=== PATIENT | female | born 1990 | race Caucasian/White ===

== ENCOUNTER 2022-01-07 10:25 | Outpatient (CLI) | payer OTHER, SELFPAY ==
[2022-01-07 11:55] LABS: Mean Corp Hgb Conc 33.3 g/dL (32-36); Mean Corpuscular Volume 84.1 fL (81-99); Mean Platelet Vol. 9.2 fl (6.2-12.0); Platelet Count 417 K/mm3 (150-450); RBC Distribution Width CV 14.6 % (11.6-14.6); Red Blood Count 4.64 M/mm3 (4.2-5.4); White Blood Count 7.6 K/mm3 (4.4-11.0)
[2022-01-07 12:12] LABS: Estradiol 45.1 pg/mL; Follicle Stimulating Hormone 2.1 mIU/mL; Luteinizing Hormone 3.7 mIU/mL; Prolactin 6.5 ng/mL; T4 Free Direct 0.87 ng/dL (0.76-1.46); Thyroid Stim Hormone (TSH) 4.05 uIU/mL (0.358-3.74)
[2022-01-13 20:58] LABS: HPV APTIMA, High Risk Negative (Negative)
== END 2022-01-07 23:59 | disposition home or self-care (01) ==
LOC: WOBLAB 10:28
PROVIDERS: PCP Hospitalist; Visit Provider Student in an Organized Health Care Education/Training Program
DX: N93.9 Abnormal uterine and vaginal bleeding, unspecified (principal)
CPT/HCPCS: 36415; 82670; 83001; 83002; 84146; 84439; 84443; 85027; 87624; 88175; G0145

== ENCOUNTER 2022-02-20 06:05 | Day surgery (SDC) | payer OTHER, SELFPAY ==
[2022-02-16 11:30] LABS: Hematocrit 40.3 % (37-47); Hemoglobin 13.3 g/dL (12.0-15.0); Mean Corpuscular Hgb 27.8 pg (27.0-32.0); Mean Corpuscular Volume 84.3 fL (81-99); Mean Platelet Vol. 9.1 fl (6.2-12.0); Platelet Count 408 K/mm3 (150-450); RBC Distribution Width CV 14.5 % (11.6-14.6); RBC Distribution Width SD 44.3 fl (35.1-43.9); Red Blood Count 4.78 M/mm3 (4.2-5.4)
[2022-02-20] VITALS (11 sets, daily range): BP systolic 117–154; BP diastolic 70–83; PULSE 89–110; RESP 16–18; TEMP 36.8–37.1; O2SAT 92–99; BMI 47.2
--- NOTE | 2022-02-20 | IMM_PTH ---
PATIENT: GEGE WILLIAM LOC: [facility] [place] U#:[id number] AGE/SX: 31/F ROOM: RE02/20/[address]: Dr. Judi Laureano, : 1990 BED: DIS: 02/20/2022 SPEC #: [id number] RECD: 02/23/22 14:06 STATUS: WILL REQ #: [id number] KATHRINE: 02/20/22 00:[address]: Jdui Laureano DEPT: IMMUNOHISTOCHEMISTRY RECD BY: Sheryl Matson ENTERED: 02/23/22 14:07 SP TYPE: IMMUNO OTHR DR: Carlos A Persaud, ORDER DISPATCHER CHIEF-C Tissues: B - Endometrium, NOS Procedures: MSH2 (add) MLH-1 (add) MSH6 (add) Anti-PMS2 (add) KI-67 (add) P53 (add) HER-2-GLORIA (initial) PHYSICIAN & INSTITUTION [place] [id number] SPECIMEN INFORMATION: Tissue Source: B - Endometrial curettings Clinical Info: Heavy menstrual bleeding Specimen Number: [id number] CPT code: 97149, 10584 x6 METHODOLOGY: Deparaffinized sections of prefer/formalin-fixed tissue or PAP/DQ stained slides are incubated with monoclonal/polyclonal antibodies/oligonucleotide probes. Localization is made via biotin free immunoperoxidase method. Appropriate controls are performed and reacted as expected. Results on target cell population are indicated in the following table: RESULTS: ANTIBODY / CLONE RESULT Block B Her-2neu (CB11) negative (0) MLH-1 (M1) positive MSH2 (25D12) positive MSH6 (44) positive PMS2 (AEG5919) positive Ki-67 (30-9) positive, moderate P53 (DO-7) positive, weak (wild type) These tests were developed and their performance characteristics determined by [facility]. They may not have been cleared or approved by the U.S. Food and Drug Administration. The FDA has determined that such clearance or approval is not necessary. The above immunohistochemical/dualISH markers are ordered and reviewed by the Pathologist. INTERPRETATION: B. Endometrial curettings: Endometrial adenocarcinoma, endometroid type. Result of Microsatellite Instability Study: Negative (no loss of mismatch protein; no microsatellite instability detected). SJ:roman 02/24/2022
--- NOTE | 2022-02-20 | EMB_PTH ---
PATIENT: GEGE WILLIAM [place] [facility] [place] [facility] [place][id number] AGE/SX: 31/F ROOM: RE02/20/[address]: Dr. Judi Laureano, : 1990 BED: DIS: 02/20/2022 SPEC #: [id number] RECD: 02/20/22 08:10 STATUS: WILL ANA #: [id number] KATHRINE: 02/20/22 00:[address]: Judi Laureano DEPT: SURGICAL PATHOLOGY RECD BY: Sheryl Matson ENTERED: 02/20/22 09:36 SP TYPE: ENDOM BX/C EDSON DR: Carlos A Persaud, ASHLEY-[place] Tissues: A - Endometrium, NOS B - Endometrium, NOS Procedures: Frozen Section (charge) Frozen Section Add'l ([facility]) Surgery Specimen Level IV HEADER OPERATION: Hysteroscopy, D & C Symphion PRE-OP DIAGNOSIS: Heavy menstrual bleeding TISSUE SUBMITTED: A - Endometrial curettings, FS, B - Endometrial curettings FROZEN SECTION DIAGNOSIS A. Endometrial curettings: Endometrial hyperplasia. SJ:roman 02/20/2022 MICROSCOPIC DIAGNOSIS A. Endometrial curettings: Well-differentiated endometrial adenocarcinoma, endometroid type, FIGO grade 1 in the background of simple and complex hyperplasia with atypia. B. Endometrial curettings: Well-differentiated endometrial adenocarcinoma, endometroid type, FIGO grade 1 in the background of simple and complex hyperplasia with atypia. See comment. SJ:roman 02/23/2022 COMMENT Immunohistochemistry ([id number]) for microsatellite instability (mismatch repair of protein) will be performed and the results will be reported separately. This case is discussed with Dr. Laureano on 02/23/22. Case has been reviewed in consultation with Dr. Hong who concurs with the above diagnosis. IDC:AM MICROSCOPIC DESCRIPTION Slides are reviewed. GROSS DESCRIPTION A - Received fresh for frozen section diagnosis labeled with the patient's name is a specimen designated endometrial curettings. The specimen consists of multiple irregular fragments of pink-red soft tissue that in aggregate measure 4.5 x 2.5 x 0.6 cm. The entire specimen is submitted for frozen section diagnosis in three cassettes. / SJ:roman 02/20/2022 B - Received in fixative is one container labeled with the patient's name and designated endometrial curettings. The specimen consists of multiple irregular fragments pink-nichole soft tissue mixed with polypoid tissue that in aggregate measure 7 x 7 x 2 cm. Two large polypoid tissue are bisected. The entire specimen is submitted in 13 cassettes. Cassette 11-13 consists of polypoid pieces of tissue. / SJ:roman 02/20/2022 TC:0 CPT: 80797 x2, 26305, 71213 x2
[2022-02-20 06:47] LABS: Internal QC Validated? YES +Cl - CLEAR BKGD; Pregnancy, Urine Negative Negative
--- NOTE | 2022-02-20 06:49 | PCM.HP.BLA ---
History and Physical Date of Admission: 02/20/22 HPI: 31-year-old female with heavy menstrual bleeding presenting for hysteroscopy, dilation curettage, myomectomy. Denies headache or vision changes, chest pain or shortness of breath, nausea or vomiting, fevers or chills, diarrhea or constipation. Reports vaginal bleeding that has been heavy, no bleeding today. 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 Obesity Surgical history: 1. Tonsillectomy and adenoidectomy 2002 2. [place] tooth extraction 2016 Medications: None Allergies: 1. Sulfa --> makes it hard to breathe Family history: Denies history of blood clots, bleeding disorders, difficulty with anesthesia Social history: Denies tobacco, alcohol, drug use Review of system: Negative otherwise stated above Physical exam Vital signs pending General: In no acute distress HEENT: Normal cephalic/atraumatic, PERRLA Cardiac: Regular rate and rhythm Respiratory: Clear to auscultation bilaterally Abdomen: Soft, nontender, nondistended Extremities: No edema Neurologic: No focal deficits, cranial nerves II through XII grossly intact Musculoskeletal: Strength out of 5 throughout extremities Assessment/plan: 31-year-old female with heavy menstrual bleeding presenting for hysteroscopy, dilation curettage, myomectomy. All risk, benefits, alternatives discussed with patient. Risk include but are not limited to: Risk of bleeding to the point of transfusion, infection, injury to surrounding tissue including bowel/bladder/uterine perforation, VTE, ICU admission. Patient aware and consented.
--- NOTE | 2022-02-20 06:53 | DCINST_ITS ---
Discharge Instructions Diet Discharge Diet: No restrictions Activity Discharge Activity: Return to Normal Activity and May Shower May resume sexual activity in: 2 weeks Weight Bearing Status: Weight bearing as tolerated Lifting Restrictions: None Dressing / Incision Call your doctor if you observe: Fever of 101 or Higher, Change in Color, Inability to urinate, Using more than 1 pad per hour, Shortness of breath, Dizziness, Swelling in the ankles, Chest pain and Calf discomfort Follow Up Care Please Follow Up With: Judi Laureano DO When: 1-2 week postoperative visit Test Results: Test results from this visit will be discussed in further detail at your follow- up appointment, if applicable. Discharge Plan Admission Primary Reason for Your Visit: Dilation and Curettage Attending Provider: Judi Laureano Primary Care Provider: Carlos A Persaud NP Discharge Orders/Prescriptions Prescriptions: New medroxyprogesterone [Provera] 10 mg tablet 10 mg PO DAILY 30 Days Qty: 90 1RF Rx Instructions: Two tabs three times daily for three days, then two tabs twice daily for three days, then two tabs once daily continuously Referrals / Follow Up: Carlos A Persaud NP, [facility] [Primary Care Provider] - Disposition Disposition (needs filled in before D/C Order can be placed): Home, Self Care
--- NOTE | 2022-02-20 06:53 | OP.PCM_ITS ---
Report of Operation Date of Procedure: 02/20/22 Pre-Operative Diagnosis: Abnormal uterine bleeding, uterine fibroid Post-Operative Diagnosis: Abnormal uterine bleeding, endometrial mass with hyperplasia Surgery/Procedure Performed:: Hysteroscopy, dilation and curettage Description of Surgical Findings:: Normal-appearing external genitalia. No uterine descensus. Cervix dilated 1 cm with some bleeding noted. Large amount of thickened exophytic tissue in the lower uterine segment, unable to completely visualize exophytic tissue borders. Uterus sounded to 11 cm. On curettage, large amount of soft endometrial tissue. Able to palpate remaining portion of the mass through cervix. Type of Anesthesia: MAC Specimen's removed: Endometrial curettings Estimated Blood Loss (mL): 30 cc Fluids Replaced: 800 cc Description of Procedure: Indications/Risk/Benefits: 31-year-old female with heavy menstrual bleeding presenting for hysteroscopy, dilation curettage, myomectomy. All risk, benefits, alternatives discussed with patient. Risk include but are not limited to: Risk of bleeding to the point of transfusion, infection, injury to surrounding tissue including bowel/bladder/uterine perforation, VTE, ICU admission. Patient aware and consented. Procedure: Patient taken the operating room and MAC anesthesia induced. Patient placed in the dorsal lithotomy position and prepped and draped in the usual sterile fashion. Weighted speculum placed in the posterior vagina and Peralta retractor u sed to visualize the cervix. Anterior lip of the cervix grasped with Allis clamp, cervix noted to be dilated. Hysteroscope placed through the cervical canal with findings stated above. Attempted to use additional Allis clamp to decrease the amount of backflow of fluid through the cervical canal (large amount, due to dilated cervix). Did not improve visualization. Hysteroscope removed. Curettage of the endometrial cavity completed noting firm endometrium in the upper cavity. Large amount of soft endometrial tissue in the lower uterine segment. Frozen specimen sent due to concern for possible endometrial carcinoma. Frozen section with definitive hyperplasia. Some bleeding noted coming from the endometrial cavity. Cervix hemostatic after Allis clamp removed. UOP: 25cc Fluid deficit: 350 cc Complications None
[2022-02-20] MEDS: Lactated Ringers 1,000 ML 15 ML IV ×2 (06:54→09:23)
== END 2022-02-20 12:48 | disposition home or self-care (01) ==
LOC: SDC 06:09 → AC 06:10
PROVIDERS: Anesthesiology; PCP Nurse Practitioner Family; Referring Provider Student in an Organized Health Care Education/Training Program; Visit Provider Student in an Organized Health Care Education/Training Program
PROC: 0UB98ZZ Excision of Uterus, Via Natural or Artificial Opening Endoscopic (ICD-10-PCS; CPT 58558; principal; 2022-02-20 07:15)
DX: N93.9 Abnormal uterine and vaginal bleeding, unspecified (principal); C54.1 Malignant neoplasm of endometrium; N85.8 Other specified noninflammatory disorders of uterus; D25.9 Leiomyoma of uterus, unspecified; N92.0 Excessive and frequent menstruation with regular cycle
CPT/HCPCS: 58558; 00952; 36415; 81025; 85027; 86850; 86900; 86901; 88305; 88331; 88332; 88341; 88342; J7120; J2405

== ENCOUNTER → 2022-03-09 | Outpatient (CLI) | payer OTHER, SELFPAY ==
--- NOTE | 2022-03-09 09:47 | EKG12_ITS ---
Test Reason : PRE-OP Blood Pressure : / mmHG Vent. Rate : 074 BPM Atrial Rate : 074 BPM P-R Int : 122 ms QRS Dur : 104 ms QT Int : 356 ms P-R-T Axes : 012 041 -04 degrees QTc Int : 395 ms Normal sinus rhythm Normal ECG Confirmed by ROXIE PONCE, YI ([id number]), videotape editor SIRIA SCHAEFER ([id number]) on 03/11/2022 2:08:09 PM Referred By: Dorina Bryan Confirmed By:YI FAUSTIN MD
--- NOTE | 2022-03-09 09:52 | RAD_ITS ---
EXAM: XR CHEST, 2 VIEWS CLINICAL INDICATION: ENDO CA C54.1 TECHNIQUE: Frontal and lateral views of the chest. This report was created using Stamped report generation technology. COMPARISON: None. FINDINGS: LUNGS AND PLEURAL SPACES: Unremarkable. No consolidation or edema. No pneumothorax. No effusion. HEART: Unremarkable. Cardiac silhouette not enlarged. MEDIASTINUM: Central airways and mediastinal contour are unremarkable. BONES/JOINTS: Unremarkable. SOFT TISSUES: Unremarkable. RAD/Chest PA and Lateral IMPRESSION: No radiographic evidence of acute cardiopulmonary disease. Electronically Signed: Edin Tate MD at 17:09 [facility] ,
[2022-03-09 10:32] LABS: Hematocrit 37.8 % (37-47); Hemoglobin 12.3 g/dL (12.0-15.0); Mean Corp Hgb Conc 32.5 g/dL (32-36); Mean Corpuscular Hgb 27.7 pg (27.0-32.0); Mean Corpuscular Volume 85.1 fL (81-99); Platelet Count 505 K/mm3 (150-450); RBC Distribution Width SD 46.4 fl (35.1-43.9); Red Blood Count 4.44 M/mm3 (4.2-5.4); White Blood Count 8.5 K/mm3 (4.4-11.0)
[2022-03-09 11:14] LABS: ALB/GLOB Ratio 0.9 RATIO (0.9-2.4); AST(SGOT) 39 U/L (15-37); Alanine Aminotransfer ALT/SGPT 62 U/L (13-56); Alkaline Phosphatase 59 U/L (45-117); Anion Gap 8 (5-15); BUN 10 mg/dL (7-18); BUN/Creat Ratio 12.5 RATIO (10-20); Calcium,Total 9.1 mg/dL (8.5-10.1); Chloride 108 mmol/L (98-107); EST Glomerular Filtration Rate 88 mL/min (>60); Est Glom Filt Rate - Afr Amer 106 mL/min (>60); Globulin 4.4 g/dL (2.2-4.2); Glucose 155 mg/dL (74-106); Potassium 3.9 mmol/L (3.5-5.1); Protein, Total 8.4 g/dL (6.4-8.2); Sodium Level 139 mmol/L (136-145)
[2022-03-10 20:44] LABS: Cancer Antigen 125 11.5 U/mL (0.0-38.1)
== END | disposition home or self-care (01) ==
LOC: PSN 09:46
PROVIDERS: PCP Nurse Practitioner Family; Referring Provider Obstetrics & Gynecology; Visit Provider Obstetrics & Gynecology
DX: C54.1 Malignant neoplasm of endometrium (principal)
CPT/HCPCS: 36415; 71046; 80053; 85027; 86304; 93005

== ENCOUNTER → 2022-04-09 | Outpatient (CLI) | payer OTHER, SELFPAY ==
--- NOTE | 2022-04-09 11:35 | RAD_ITS ---
STUDY: X-RAY CHEST REASON FOR EXAM: Female, 31 years old. Cough. TECHNIQUE: Frontal and lateral views of the chest. COMPARISON: March 09, 2022. FINDINGS: The lungs are clear and expanded. There is no demonstrated pleural abnormality. Normal size heart. Normal mediastinum and nahum. Normal visualized pulmonary arteries. Normal visualized aortic arch and descending thoracic aorta. Normal visualized thoracic spine. Normal visualized ribs, clavicles, and shoulders. There is no demonstrated abnormality of the visualized soft tissue structures of the upper abdomen. RAD/Chest PA and Lateral IMPRESSION: No interval change. Normal chest. Electronically Signed: Arash Richards, at 13:01 EST ,
== END | disposition home or self-care (01) ==
LOC: RAD 11:23
PROVIDERS: PCP Nurse Practitioner Family; Referring Provider Nurse Practitioner Adult Health; Visit Provider Nurse Practitioner Adult Health
DX: C54.1 Malignant neoplasm of endometrium (principal)
CPT/HCPCS: 71046

== ENCOUNTER → 2022-11-25 | Outpatient (CLI) | payer OTHER, SELFPAY ==
--- NOTE | 2022-11-25 08:45 | US_ITS ---
INDICATION: BLEEDING EXAMINATION: Ultrasound US Transvaginal Non-OB TECHNIQUE: Transvaginal (for optimal evaluation of the adnexa) pelvic ultrasound was performed. Grayscale, spectral waveform, and color flow Doppler evaluation of the adnexa. COMPARISON: No relevant prior comparison study available FINDINGS: UTERUS: Surgically absent.. RIGHT OVARY: Not visualized. LEFT OVARY: Not visualized. FREE FLUID: None. BLADDER: The bladder is not well distended and has a prevoid volume of 97 cc. US/Transvaginal Non- IMPRESSION: 1. Status post hysterectomy. 2. Nonvisualization of both ovaries. 3. No pelvic mass is seen. Electronically Signed: Brenton Membreno MD at 9:52 EDT ,
== END | disposition home or self-care (01) ==
LOC: OPUS 08:43
PROVIDERS: PCP Nurse Practitioner Family; Referring Provider Nurse Practitioner Adult Health; Visit Provider Nurse Practitioner Adult Health
DX: C54.1 Malignant neoplasm of endometrium (principal); N93.9 Abnormal uterine and vaginal bleeding, unspecified
CPT/HCPCS: 76830